=== PATIENT | male | born 1960 | race Caucasian/White ===

== ENCOUNTER → 2018-08-06 | Outpatient (CLI) | payer OTHER ==
--- NOTE | 2018-08-06 13:04 | XR ---
EXAMINATION TYPE: XR lumbosacral spine min 4V DATE OF EXAM: 08/06/2018 CLINICAL HISTORY: Chronic back pain with no known injury. TECHNIQUE: Frontal, lateral, and oblique images of the lumbar spine are obtained. COMPARISON: None FINDINGS: There are 5 lumbar type vertebral bodies identified. The lumbar spine shows satisfactory alignment without evidence of acute fracture or dislocation. Vertebral body heights are maintained. T here is loss of intervertebral disc height at L4-L5 and L5-S1. There is straightening of usual lumbar lordosis. The inferior endplate of L1 is slightly obscured at its anterior margin although there is overlying b owel. This could relate to Schmorl's node formation with much less likely consideration for discitis. Multilevel facet arthropathy is seen at L3-S1. Oblique images demonstrate at least moderate right claribel ral foraminal narrowing at L4-L5 and at least mild left neural foraminal narrowing at L4-L5. Pedicles and transverse processes are grossly unremarkable. A moderate amount retained colonic stool is seen within the nondilated visualized portions of the lar ge bowel. The overlying soft tissue appears unremarkable. IMPRESSION: 1. Indistinct margin of the inferior endplate of L1 anteriorly. This could be on the basis of degener ative disc disease and Schmorl's node formation although discitis is a less likely consideration. Cor relate with CBC, fevers, and point tenderness to determine the need for MRI. 2. Moderate multilevel degenerative disc disease of the lumbar spine most pronounced at L4-S1 with ne ural foraminal narrowing bilaterally at L4-L5. 3. Straightening of the usual lumbar lordosis that may be on the basis of muscular sprain and/or spas m.
== END | disposition home or self-care (01) ==
LOC: RADXRMAIN 11:39
PROVIDERS: ATTEND Family Medicine
DX: M99.73 Connective tissue and disc stenosis of intervertebral foramina of lumbar region (principal); M51.37 Other intervertebral disc degeneration, lumbosacral region
CPT/HCPCS: 72110